=== PATIENT | female | born 1990 | race Hispanic/Latino ===

== ENCOUNTER 2022-09-18 12:42 | Emergency (ER) | payer SELFPAY ==
[2022-09-18 13:36] LABS: Anion Gap 11 mmol/L (10-20); BUN (Urea Nitrogen) 10 mg/dL (7.0-18.7); Calc. Creatinine Clearance 0 mL/min (70-130); Calcium 8.5 mg/dL (7.8-10.44); Carbon Dioxide 24 mmol/L (22-29); Chloride 109 mmol/L (98-107); Estimated GFR 107; Glucose 100 mg/dL (70-105); Potassium 3.8 mmol/L (3.5-5.1); Sodium 140 mmol/L (136-145)
== END 2022-09-18 14:17 | disposition home or self-care (01) ==
LOC: NAV ERS 12:42
DX: G62.9 Polyneuropathy, unspecified (principal)
CPT/HCPCS: 80048; 99283

== ENCOUNTER 2022-11-07 11:11 | Emergency (ER) | payer BC, SELFPAY | END 2022-11-07 12:40 | disposition home or self-care (01) | LOC: NAV ERS 11:11 | DX: B34.9 Viral infection, unspecified (principal); R05.9 Cough, unspecified; R50.9 Fever, unspecified; F17.210 Nicotine dependence, cigarettes, uncomplicated; Z20.822 Contact with and (suspected) exposure to COVID-19 | CPT/HCPCS: 87804; 99283; U0003; U0005 ==

== ENCOUNTER 2024-03-16 22:22 | Emergency (ER) | payer SELFPAY | END 2024-03-16 23:01 | disposition left against medical advice (07) | LOC: NAV ERS 22:22 | DX: Z53.21 Procedure and treatment not carried out due to patient leaving prior to being seen by health care provider (principal) ==

== ENCOUNTER 2025-04-04 12:28 | Emergency (ER) | payer SELFPAY ==
[2025-04-04] MEDS ORDERED: KETAMINE 100 MG/ML (5ML VIAL) ONE (13:51)
[2025-04-04 15:35] LABS: ALT (SGPT) 24 U/L (Less than 34); AST (SGOT) 33 U/L (11-34); Acetaminophen Less than 10 mcg/mL (Less than 10); Albumin 5.1 g/dL (3.1-4.5); Alkaline Phosphatase 96 U/L (40-110); Anion Gap 17 mmol/L (10-20); BUN (Urea Nitrogen) 27 mg/dL (7.0-18.7); Bilirubin, Total 0.3 mg/dL (0.3-1.2); CK (CPK) 249 U/L (29-168); Calc. Creatinine Clearance 0 mL/min (70-130); Calcium 9.7 mg/dL (7.8-10.44); Carbon Dioxide 22 mmol/L (22-29); Chloride 104 mmol/L (98-107); Globulin 3.2 g/dL (2.4-3.5); Glucose 91 mg/dL (70-105); Potassium 4.1 mmol/L (3.5-5.1); Salicylate Less than 8.0 mg/dL (Less than 8.0); Sodium 139 mmol/L (136-145)
[2025-04-04 15:36] LABS: Troponin I 0.033 ng/mL (< 0.028)
[2025-04-04 15:39] LABS: BHCG - Serum Negative (NEGATIVE); Pregs Control Bar Appear? YES (CONTROL BAR)
[2025-04-04 15:51] LABS: #Basophils 0.1 thou/uL (0.0-0.2); #Eosinophils 0.0 thou/uL (0.0-0.7); #Lymphocytes 1.0 thou/uL (1.20-3.40); #Monocytes 0.8 thou/uL (0.11-0.59); #Neutrophils 15.2 thou/uL (1.40-6.50); %Basophils 0.6 % (0.0-1.0); %Eosinophils 0.0 % (0.0-10.0); %Lymphocytes 5.7 % (21.0-51.0); %Monocytes 4.9 % (0.0-10.0); %Neutrophils 88.7 % (42.0-75.0); Hematocrit 35.9 % (36.0-47.0); Hemoglobin 10.5 g/dL (12.0-16.0); Mean Corpuscular Hemoglobin 19.9 pg (27.0-31.0); Mean Corpuscular Volume 68.1 fl (78.0-98.0); Platelet Count 565 10x3/uL (130-400); Red Blood Cell (RBC) Count 5.28 mill/uL (4.20-5.40); White Blood Cell (WBC) Count 17.1 10x3/uL (4.8-10.8)
[2025-04-04 15:52] LABS: Microcytosis MODERATE=15-30 cells (100X) (0-5/hpf)
[2025-04-04 19:14] LABS: Troponin I 0.033 ng/mL (< 0.028)
[2025-04-04 20:39] LABS: Cocaine Metabolite Screen Negative (Negative); THC/Cannabinoid Screen Negative (Negative); Tricyclic Screen Negative (Negative)
[2025-04-04 21:47] LABS: Troponin I 0.035 ng/mL (< 0.028)
[2025-04-05] MEDS ORDERED: Aspirin Chewable 81 MG TAB ONE (00:46)
[2025-04-05 03:33] LABS: Troponin I 0.037 ng/mL (< 0.028)
== END 2025-04-05 03:46 | disposition left against medical advice (07) ==
LOC: NAV ERS 12:28
DX: T75.4XXA Electrocution, initial encounter (principal); R79.89 Other specified abnormal findings of blood chemistry; D64.9 Anemia, unspecified; F22 Delusional disorders; E03.9 Hypothyroidism, unspecified; D72.829 Elevated white blood cell count, unspecified; F17.290 Nicotine dependence, other tobacco product, uncomplicated; Y35.833A Legal intervention involving a conducted energy device, suspect injured, initial encounter
CPT/HCPCS: 80053; 80306; 80307; 82550; 84443; 84484; 84703; 85025; 93005; 96372; 96374; J1630; J7030

== ENCOUNTER 2025-06-26 09:21 | Emergency (ER) | payer SELFPAY | END 2025-06-26 10:05 | disposition home or self-care (01) | LOC: NAV ERS 09:21 | DX: F29 Unspecified psychosis not due to a substance or known physiological condition (principal); F17.290 Nicotine dependence, other tobacco product, uncomplicated; F17.210 Nicotine dependence, cigarettes, uncomplicated ==